=== PATIENT | male | born 1985 | race Caucasian/White ===

== ENCOUNTER 2017-06-04 05:07 | Emergency (ER) | payer OTHER ==
[2017-06-04 05:15] VITALS: BP 142/88
--- NOTE | 2017-06-04 05:21 | ED Physician Documentation ---
PD HPI HEADACHE - Stated complaint Stated Complaint: HEADACHE - Chief complaint Chief Complaint: Neuro - History obtained from History obtained from: Patient - History of Present Illness Timing - onset: How many days ago (3-4) Timing - details: Gradual onset, Waxing and waning Pain level now: 10 Location: Front, Right, Left Quality: Throbbing, Aching Associated symptoms: No: Fever, Stiff neck Improved by: Nothing Worsened by: Other (no apparent exacerbating factors) Recently seen: Not recently seen - Additional information Additional information: c/o bilateral sinus congestion and bilateral ear pain, left greater than right. sinuses are painful and causing generalized headache Review of Systems Constitutional: denies: Fever, Chills, Sweats Ears: reports: Ear pain. denies: Loss of hearing, Drainage/discharge Nose: reports: Congestion, Sinus pressure / pain Throat: denies: Sore throat Respiratory: reports: Cough. denies: Dyspnea PD PAST MEDICAL HISTORY - Past Medical History Past Medical History: No - Past Surgical History Past Surgical History: No - Present Medications Home Medications: Ambulatory Orders Medication Instructions Recorded Confirmed Azithromycin 250 mg PO DAILY #4 tablet 06/04/17 Hydrocodone/Acetaminophen [Vicodin 1 - 2 each PO Q6HR PRN #20 tablet 06/04/17 5-300 mg Tablet] - Allergies Allergies/Adverse Reactions: Allergies Allergy/AdvReac Type Severity Reaction Status Date / Time Penicillins Allergy Unknown Verified 06/04/17 05:14 - Social History Does the pt smoke?: No Smoking Status: Never smoker Does the pt drink ETOH?: Yes Does the pt have substance abuse?: No - Immunizations Immunizations are current?: Yes - POLST Patient has POLST: No PD ED PE NORMAL - Vitals Vital signs reviewed: Yes - General General: Alert and oriented X 3, No acute distress, Well developed/nourished - HEENT HEENT: Ears normal, Moist mucous membranes, Pharynx benign - Neck Neck: Supple, no meningeal sign - Respiratory Respiratory: No respiratory distress, Clear bilaterally PD ED PE EXPANDED - HEENT HEENT: Right maxillary sinus TTP, Left maxillary sinus TTP, Nasal congestion Results - Vitals Vitals: Vital Signs - 24 hr 06/04/17 05:11 Temperature 36.7 C Heart Rate 97 Respiratory 16 Rate Blood Pressure 142/88 H O2 Saturation 100 Oxygen O2 Source Room air PD MEDICAL DECISION MAKING - ED course Complexity details: considered differential, d/w patient Departure - Departure Disposition: Home, Self Care Clinical Impression: Sinusitis Qualifiers: Sinusitis location: unspecified location Chronicity: acute Recurrence: non- recurrent Qualified Code(s): J01.90 - Acute sinusitis, unspecified Condition: Good Instructions: ED Hypertension Poss, ED Sinusitis Abx Tx Prescriptions: Hydrocodone/Acetaminophen [Vicodin 5-300 mg Tablet] 1 - 2 each PO Q6HR PRN #20 tablet PRN Reason: Pain Azithromycin 250 mg PO DAILY #4 tablet Discharge Date/Time: 06/04/17 05:48
[2017-06-04] MEDS ORDERED: HYDROcod/ACETAM 5/325 MG TABLET PO STA (05:36)
[2017-06-04] MEDS ORDERED: DEXAMETHASONE 10 MG/ML VIAL PO STA (05:36)
[2017-06-04] MEDS ORDERED: AZITHROMYCIN 250 MG TABLET PO STA (05:37)
[2017-06-04] MEDS ORDERED: DEXAMETHASONE 10 MG/ML VIAL ONE (05:43)
[2017-06-04] MEDS ORDERED: AZITHROMYCIN 250 MG TABLET PO ONE (05:43)
[2017-06-04] MEDS ORDERED: HYDROcod/ACETAM 5/325 MG TABLET ONE (05:43)
[2017-06-04] MEDS ORDERED: CHERRY SYRUP 10 ML UDC PO ONE (05:44)
== END 2017-06-04 05:48 | disposition home or self-care (01) ==
LOC: ED 05:07
DX: J01.90 Acute sinusitis, unspecified (principal)
CPT/HCPCS: 99283; A9270